=== PATIENT | male | born 1990 | race African-American/Black ===

== ENCOUNTER → 2016-05-25 | Emergency (ER) | payer OTHER ==
[~2016-05-25] VITALS: Ht 177.8 cm; Wt 77.1 kg
[~2016-05-25] MED LIST: ABILIFY15 MG ORAL; ACETAMINOPHEN-1 EAC1 ORAL; BENADRYL25 M3 PO; CONCERTA36 MG PO; IBUPROFEN600 MG ORAL; KEFLEX500 MG ORAL; NORCO 5-325 TA1 EAC1 ORAL; PREDNISONE20 MG ORAL; RANITIDINE HCL150 MG ORAL; RITALIN20 MG ORAL; SOMA350 MG PO; TEMAZEPAM30 MG ORAL; VIBRAMYCIN100 MG ORAL
[2016-05-25 10:18] VITALS: BP 121/80
--- NOTE | 2016-05-25 14:50 | Emergency Room Report ---
History of Present Illness General Chief Complaint: General Complaint Source: Patient Present Illness Allergies: Coded Allergies: WHEAT (Unverified Allergy, Unknown, 08/31/15) Nursing Documentation-[facility] Past Medical History: No Stated History Hx Neurological Problems: Yes - ADHD Physical Exam Vital Signs Date Time Temp Pulse Resp B/P Pulse Ox O2 Delivery O2 Flow Rate FiO2 05/25/16 10:18 97.2 96 20 121/80 100 Room Air Medical Decision Making Diagnostic Impression: Primary Impression: Patient left without being seen ER Course patient left prior to MD evaluation Last Vital Signs Date Time Temp Pulse Resp B/P Pulse Ox O2 Delivery O2 Flow Rate FiO2 05/25/16 10:18 97.2 96 20 121/80 100 Room Air Disposition: LEFT W/OUT BEING SEEN Condition: Stable REGGIE HCIU M.D. May 25, 2016 14:50
== END | disposition left against medical advice (07) ==
LOC: EMR 10:09
DX: R09.89 Other specified symptoms and signs involving the circulatory and respiratory systems (principal); Z53.21 Procedure and treatment not carried out due to patient leaving prior to being seen by health care provider
CPT/HCPCS: 99281